=== PATIENT | male | born 1985 | race Caucasian/White ===

== ENCOUNTER 2017-03-08 13:32 | Emergency (ER) | payer OTHER ==
--- NOTE | 2017-03-08 18:58 | ED ---
Complex/Multi-Sys Presentation - HPI Summary HPI Summary: 31 male presents with concerns of lupus. Patient states he was in a alcohol rehab facility in [place] that wanted to test him for lupus due to arthralgias and alopecia however he left just shortly after to be a resident in [facility]. Patient arrives to ED today with request to have blood drawn to check for lupus. Also states he has been having some discomfort in his pilonidal cleft area x 1 week, sore to touch and worse with certain movements. Denies any fever/ chills, discharge or warmth in the area. He thought at first it was from "chafing". Denies any other complaints at this time. Denies neuro symptoms. Denies IV drug use, denies history of MRSA. - History Of Current Complaint Chief Complaint: EDGeneral Time Seen by Provider: 03/08/17 15:46 Hx Obtained From: Patient Onset/Duration: Sudden Onset, Lasting Weeks, Worse Since Timing: Constant Severity Currently: Mild Severity Initially: Mild Location: Pain At: - pilonidal sinus area, in between buttocks, arthlagias throughout joints, on going for years Character: Unable To Describe Aggravating Factor(s): bending, sitting and certain movements, touching Alleviating Factor(s): none PMH/Surg Hx/FS Hx/Imm Hx Endocrine/Hematology History: Denies: Hx Diabetes Cardiovascular History: Denies: Hx Hypertension Respiratory History: Denies: Hx Asthma - Surgical History Surgery Procedure, Year, and Place: n/a - Immunization History Immunizations Up to Date: Yes Infectious Disease History: No Infectious Disease History: Denies: Traveled Outside the [place] in Last 30 Days - Family History Known Family History: Positive: None - Social History Alcohol Use: Inpatient of [facility]. Stopped drinking 02/25/17 Substance Use Type: Reports: Cocaine, Marijuana, Other Substance Use Comment - Amount & Last Used: crack sporatic use of both Smoking Status (MU): Former Smoker Review of Systems Constitutional: Negative Cardiovascular: Negative Respiratory: Negative Gastrointestinal: Negative Positive: Arthralgia Positive: Other - sores in between buttocks, alopecia Neurological: Negative All Other Systems Reviewed And Are Negative: Yes Physical Exam Triage Information Reviewed: Yes Vital Signs On Initial Exam: Initial Vitals Temp Pulse Resp BP Pulse Ox 98.1 F 83 20 135/75 99 03/08/17 13:39 03/08/17 13:39 03/08/17 13:39 03/08/17 13:39 03/08/17 13:39 Vital Signs Reviewed: Yes Appearance: Positive: Well-Appearing, No Pain Distress, Well-Nourished Skin: Positive: Warm, Skin Color Reflects Adequate Perfusion, Dry, Erythema @ - pilonidal sinus/cleft area, inbetween buttocks. appear to be at region of pits, erythema with no drainable abscess evident, tender on palpation, dime size firm nodules x 2 in area. non-fluctuant, without FB. possible folliculitis versus beginning of pilonidal cyst. not warm to touch. no surrounding cellulitis. no open wounds or tracts noted Head/Face: Positive: Scalp - alopecia throughout scalp, previously diagnosed and treated Eyes: Positive: Normal, Conjunctiva Clear ENT: Positive: Normal ENT inspection, Hearing grossly normal, Pharynx normal, TMs normal Neck: Positive: Supple, Nontender, No Lymphadenopathy Respiratory/Lung Sounds: Positive: Clear to Auscultation, Breath Sounds Present. Negative: Rales, Rhonchi, Wheezes Cardiovascular: Positive: Normal, RRR, Pulses are Symmetrical in both Upper and Lower Extremities Abdomen Description: Positive: Nontender, Soft Bowel Sounds: Positive: Present Musculoskeletal: Positive: Normal, Strength/ROM Intact. Negative: Limited @, Interruption @, Abnormal @, Pain @, Edema Left, Edema Right Neurological: Positive: Normal, Sensory/Motor Intact, Alert, Oriented to Person Place, Time, CN Intact II-III, Reflexes Intact, NV Bundle Intact Distally, Normal Gait Diagnostics - Vital Signs Vital Signs Temp Pulse Resp BP Pulse Ox 03/08/17 13:41 98.1 F 89 20 135/75 99 03/08/17 13:39 98.1 F 83 20 135/75 99 - Laboratory Lab Statement: Any lab studies that have been ordered have been reviewed, and results considered in the medical decision making process. Complex Multi-Symp Course/Dx Course Of Treatment: given ibuprofen for pain and inflammation. ROGELIO, Sed rate and CRP ordered to rule out lupus. Due to PE findings patient will be started on antibiotic to help clear possible start of pilonidal cyst versus, follicultiis. No drainable abscess, no need for further soft tissue imaging. Aware of worsening signs and symptoms and follow up evaluation may be needed in the near future if abscess appears. Follow up with PCP - Diagnoses Differential Diagnoses/HQI/PQRI: Other - pilonidal abscess, folliculitis, lupus , cellulitis, doreen, tinea Provider Diagnoses: Pilonidal cyst without abscess, Encounter for medical screening examination Discharge - Discharge Plan Condition: Stable Disposition: HOME Prescriptions: Cephalexin CAP* [Keflex CAP*] 500 mg PO TID #30 cap Patient Education Materials: Pilonidal Cyst (ED) Referrals: Domo Shabazz MD [Primary Care Provider] - John Mancini MD [Medical Doctor] - Additional Instructions: You will hear about your blood work results in the next couple of days. Further evaluation and work up may be required. Take prescribed antibiotic to help with infection. If symptoms persist or worsen please seek medical attention promptly. Worsening symptoms include draining, increased swelling, increased pain, warmth and fever/ chills. Take ibuprofen or naproxen to help with discomfort and inflammation. Apply warm compresses to area multiple times daily. Recommend follow up with rheumatology.
[2017-03-08] MEDS ORDERED: Cephalexin CAP* 500 MG PO ONE (19:19)
[2017-03-08] MEDS ORDERED: Ibuprofen TAB* 600 MG PO ONE (19:23)
== END 2017-03-08 20:15 | disposition home or self-care (01) ==
LOC: ED 13:32
DX: L05.91 Pilonidal cyst without abscess (principal); Z87.891 Personal history of nicotine dependence
CPT/HCPCS: 36415; 85652; 86038; 86140; 99282; A9270-GY